=== PATIENT | female | born 1995 | race Caucasian/White ===

== ENCOUNTER 2016-07-26 07:57 | Emergency (ER) | payer OTHER ==
[2016-07-26] MEDS ORDERED: IBUPROFEN 200 MG TABLET ONE ×2 (08:30→08:31)
[2016-07-26] MEDS ORDERED: AMOXICILLIN TRIHYDRATE 250 MG CAPSULE ONE ×2 (08:32→09:01)
[2016-07-26] MEDS ORDERED: ONDANSETRON 4 MG ODT TAB ONE (09:53)
== END 2016-07-26 09:36 | disposition home or self-care (01) ==
LOC: ED 07:57
DX: L03.211 Cellulitis of face (principal)
CPT/HCPCS: 99283 ×2; A9270 ×5